=== PATIENT | male | born 1995 | race Caucasian/White ===

== ENCOUNTER 2023-06-27 15:32 | Outpatient (OUT) | payer OTHER, SELFPAY ==
[2023-06-27 16:12] LABS: Basophils Percent Auto 0.3 % (0.2-2.0); Eosinophils Absolute Auto 0.1 10^3/uL (0.0-0.7); Eosinophils Percent Auto 0.4 % (0.9-7.0); Hematocrit 48.2 % (42.0-54.0); Hemoglobin 15.6 g/dL (14.0-18.0); Immature Granulocytes Abs Auto 0.05 10^3/uL (0.00-0.03); Immature Granulocytes Pct Auto 0.4 % (0.0-0.5); Lymphocytes Absolute Auto 2.8 10^3/uL (1.2-3.8); Lymphocytes Percent Auto 20.2 % (20.5-60.0); Mean Corpuscular HGB Conc 32.4 g/dL (29.9-35.2); Mean Corpuscular Hemoglobin 26.5 pg (25.9-34.0); Mean Corpuscular Volume 81.8 fL (80.0-94.0); Mean Platelet Volume 10.5 fL (9.5-13.5); Monocytes Absolute Auto 0.8 10^3/uL (0.3-0.8); Monocytes Percent Auto 5.5 % (1.7-12.0); Neutrophils Percent Auto 73.2 % (43.0-75.0); Platelet Count 298 10^3/uL (150-450); Red Blood Count 5.89 10^6/uL (4.70-6.10); Red Cell Distribution Width 13.2 % (11.0-15.0); White Blood Count 13.6 10^3/uL (4.0-11.0)
[2023-06-27 16:25] LABS: Estimated Average Glucose 103 mg/dL; Glycohemoglobin A1C 5.2 % (4.5-6.2)
[2023-06-27 16:34] LABS: Alanine Aminotransferase 24 U/L (16-63); Albumin Globulin Ratio 1.4; Albumin Level 4.7 g/dL (3.4-5.0); Alkaline Phosphatase 72 U/L (46-116); Anion Gap 13.5; Aspartate Amino Transferase 13 U/L (15-37); BUN Creatinine Ratio 11.3; Bilirubin Total 0.9 mg/dL (0.2-1.0); Calcium 9.3 mg/dL (8.5-10.1); Carbon Dioxide 30.4 mmol/L (21.0-32.0); Chloride 101 mmol/L (98-107); Chol HDL Ratio 3.7; Cholesterol 210 mg/dL (<=200); Estimated GFR (African America >60 (>=60); Estimated GFR (Non-African Ame >60 (>=60); Free T3 3.73 pg/mL (2.18-3.98); Globulin 3.4 g/dL; Glucose 84 mg/dL (74-106); HDL Cholesterol 57 mg/dL (40-60); Potassium 3.9 mmol/L (3.5-5.1); Sodium 141 mmol/L (136-145); Thyroid Stimulating Hormone 1.263 uIU/mL (0.358-3.740); Total Protein 8.1 g/dL (6.4-8.2); Triglycerides 64 mg/dL (<=150); VLDL CHOLESTEROL 12.8 mg/dL
[2023-06-28 12:08] LABS: Insulin 9.3 uIU/mL (2.6-24.9)
== END 2023-06-27 15:33 | disposition home or self-care (01) ==
LOC: LAB 15:35
PROVIDERS: PCP Family Medicine; Visit Provider Family Medicine
DX: Z00.00 Encounter for general adult medical examination without abnormal findings (principal)
CPT/HCPCS: 36415; 80053; 80061; 83036; 83525; 84436; 84443; 84481; 85025

== ENCOUNTER 2024-04-17 11:48 | Outpatient (OUT) | payer OTHER, SELFPAY ==
--- OUTSIDE RECORDS SUMMARY | 2024-04-17 12:09 | XMS_ITS | CCD ---
Author Organization [facility] Inform ion Partnership [facility] Care Team Providers Care Spray Blender Name Role Phone Brayden Taylor Attending Provider Anette Powers Unavailable Teresa Li Unavailable DR SHAUN GU Admitting Unavailable DR SHAUN GU Attending Unavailable DR SHAUN GU Primary Care Unavailable DR SHAUN GU Consulting Unavailable Unavailable Unavailable Unavailable Medications Current Medications Medication Drug Class(es) Dates Sig (Normalized) Sig (Original) pantoprazole 40 mg delayed release oral tablet (2 sources) Proton Pump Inhibitor take 1 tablet by mouth once daily Pantoprazole Sodium 40 MG take 1 tablet by mouth once daily Oral for 30 Days Active Problems Problem Classification Problem Date Documented Da te Episodic/Chronic Open wounds of head; neck; and trunk (1 source) Laceration without foreign body of scalp, initial encounter Onset: 02-21-2022 Resolved: 02-21-2022 Episodic Other aftercare (1 source) Encounter for removal of sutures Onset: 03-01-2022 Resolved: 03-01-2022 Episodic Other injuries and conditions due to external causes (1 source) Unspecified injury of head, initial encounter Onset: 02-21-2022 Resolved: 02-21-2022 Episodic Results Test Name Value Interpretation Reference Range Facility INSULINon 06-27-2022 Insulin 20.3 uIU/mL Normal 2.6-24.9 [facility] Comment on above: Performed By: #### I NSULIN #### [facility] [address] [address] [address] Rosemary Olvera CBC AUTO DIFFon 06-26-2022 BASO # 0.0 103/ul Normal 0.0-0.1 [facility] Comment on above: Performed By: #### C BC #### [facility] [address] [address] [address] Rosemary Olvera Basophils/100 WBC (Bld) 0.4 % Normal 0.2-2.0 [facility] Comment on above: Performed By: #### C BC #### [facility] [address] [place] [address] Dr. Rosemary Olvera EO # 0.2 103/ul Normal 0.0-0.7 [facility] Comment on above: Performed By: #### C BC #### [facility] [address] [place] [address] Dr. Rosemary Olvera Eosinophils/100 WBC (Bld) 1.8 % Normal 0.9-7.0 [facility] Comment on above: Performed By: #### C BC #### [facility] [address] [place] [address] Dr. Rosemary Olvera Erythrocyte distribution width (RBC) [Ratio] 13.7 % Normal 11.0-15.0 [facility] Comment on above: Performed By: #### C BC #### [facility] [address] [place] [address] Dr. Rosemary Olvera Hematocrit (Bld) [Volume fraction] 48.0 % Normal 42.0-54.0 [facility] Comment on above: Performed By: #### C BC #### [facility] [address] [place] [address] Dr. Rosemary Olvera Hemoglobin (Bld) [Mass/Vol] 15.9 g/dL Normal 14.0-18.0 [facility] Comment on above: Performed By: #### C BC #### [facility] [address] [place] [address] Dr. Rosemary Olvera IG # 0.04 10e3/ul Critically high 0.00-0.03 [facility] Comment on above: Performed By: #### C BC #### [facility] [address] [place] [address] Dr. Rosemary Olvera IG % 0.4 % Normal 0.0-0.5 [facility] Comment on above: Performed By: #### C BC #### [facility] [address] [address] [address] Rosemary Olvera LYMPH # 2.2 103/ul Normal 1.2-3.8 [facility] Comment on above: Performed By: #### C BC #### [facility] [address] [address] [address] Rosemary Olvera Lymphocytes/100 WBC (Bld) 24.4 % Normal 20.5-60.0 [facility] Comment on above: Performed By: #### C BC #### [facility] [address] [place] [address] Dr. Rosemary Olvera MANUAL DIFF REQ NO Normal [facility] Comment on above: Performed By: #### C BC #### [facility] [address] [place] [address] Dr. Rosemary Olvera MCH (RBC) [Entitic mass] 26.5 pg Normal 25.9-34.0 [facility] Comment on above: Performed By: #### C BC #### [facility] [address] [place] [address] Dr. Rosemary Olvera MCHC (RBC) [Mass/Vol] 33.1 g/dL Normal 29.9-35.2 [facility] Comment on above: Performed By: #### C BC #### [facility] [address] [place] [address] Dr. Rosemary Olvera MCV (RBC) [Entitic vol] 79.9 fL Critically low 80.0-94.0 [facility] Comment on above: Performed By: #### C BC #### [facility] [address] [place] [address] Dr. Rosemary Olvera MONO # 0.5 103/ul Normal 0.3-0.8 [facility] Comment on above: Performed By: #### C BC #### [facility] [address] [place] [address] Dr. Rosemary Olvera Monocytes/100 WBC (Bld) 5.5 % Normal 1.7-12.0 [facility] Comment on above: Performed By: #### C BC #### [facility] [address] [place] [address] Dr. Rosemary Olvera NEUT # 6.1 103/ul Normal 1.4-6.5 [facility] Comment on above: Performed By: #### C BC #### [facility] [address] [place] [address] Dr. Rosemary Olvera Neutrophils/100 WBC (Bld) 67.5 % Normal 43.0-75.0 [facility] Comment on above: Performed By: #### C BC #### [facility] [address] [place] [address] Dr. Rosemary Olvera Platelet mean volume (Bld) [Entitic vol] 10.2 fL Normal 9.5-13.5 [facility] Comment on above: Performed By: #### C BC #### [facility] [address] [place] [address] Dr. Rosemary Olvera PLT 283 103/ul Normal 150-450 [facility] Comment on above: Performed By: #### C BC #### [facility] [address] [place] [address] Dr. Rosemary Olvera RBC 6.01 106/ul Normal 4.70-6.10 [facility] Comment on above: Performed By: #### C BC #### [facility] [address] [place] [address] Dr. Rosemary Olvera WBC 9.1 103/ul Normal 4.0-11.0 [facility] Comment on above: Performed By: #### C BC #### [facility] [address] [place] [address] Dr. Rosemary Olvera FREE THYROXINE INDEX T7on FTI 3.71 Normal 1.30-4.50 [facility] Comment on above: Performed By: #### T 7, LIPID, CMP, TSH #### [facility] [address] [place] [address] Dr. Rosemary Olvera T3U 35.0 % Normal 33.0-40.0 [facility] Comment on above: Performed By: #### T 7, LIPID, CMP, TSH #### [facility] [address] [place] [address] Dr. Rosemary Olvera T4 [Mass/Vol] 10.60 ug/dL Normal 4.50-12.10 [facility] Comment on above: Performed By: #### T 7, LIPID, CMP, TSH #### [facility] [address] [address] [address] Rosemary lOvera GLYCOHEMOGLOBIN A1Con 2021 ADA RECOMMENDATION SEE BELOW Normal [facility] Comment on above: Result Comment: ADA RECOMMENDED LIMIT 4.0 - 6.0 ADA THERAPEUTIC TARGET < 7.0 ACTION SUGGESTED > 7.0 Performed By: #### A 1C #### [facility] [address] [address] [address] Rosemary Olvera Glucose [Mass/Vol] 108 mg/dL Normal [facility] Comment on above: Performed By: #### A 1C #### [facility] [address] [place] [address] Dr. Rosemary Olvera HbA1c (Bld) [Mass fraction] 5.4 % Normal 4.5-6.2 [facility] Comment on above: Performed By: #### A 1C #### [facility] [address] [address] [address] Rosemary Olvera LIPID PROFILEon 06-26-2022 CHOL-HDL RATIO NORM SEE BELOW Normal [facility] Comment on above: Result Comment: 3.3 - 4.4 LOW RISK 4.4 - 7.1 AVERAGE RISK 7.1 - 11.0 MODERATE RISK >11.0 HIGH RISK Performed By: #### T 7, LIPID, CMP, TSH #### [facility] [address] [address] [address] Rosemary Olvera Cholesterol [Mass/Vol] 198 mg/dL Normal <=200 [facility] Comment on above: Performed By: #### T 7, LIPID, CMP, TSH #### [facility] [address] [address] [address] Rosemary Olvera Cholesterol in HDL [Mass/Vol] 47 mg/dL Normal 40-60 [facility] Comment on above: Performed By: #### T 7, LIPID, CMP, TSH #### [facility] [address] [address] [address] Rosemary Olvera Cholesterol in LDL [Mass/Vol] 135.4 mg/dL Normal [facility] Comment on above: Performed By: #### T 7, LIPID, CMP, TSH #### [facility] [address] [address] [address] Rosemary Olvrea Cholesterol.total/Cho lesterol in HDL [Mass ratio] 4.2 {ratio} Normal [facility] Comment on above: Performed By: #### T 7, LIPID, CMP, TSH #### [facility] [address] [address] [address] Rosemary Olvera HDL NORMAL > or = 60 mg/dl - LOW CARDIOVASCULAR RISK <40 mg/dl - HIGH CARDIOVASCULAR RISK Normal [facility] Comment on above: Performed By: #### T 7, LIPID, CMP, TSH #### [facility] [address] [place] [address] Dr. Rosemary Olvera LDL CALC NORMAL SEE BELOW Normal [facility] Comment on above: Result Comment: <100 mg/dl OPTIMAL 100 - 129 mg/dl NEAR OR ABOVE OPTIMAL 130 - 159 mg/dl BORDERLINE HIGH 160 - 189 mg/dl HIGH >190 mg/dl VERY HIGH Performed By: #### T 7, LIPID, CMP, TSH #### [facility] [address] [address] [address] Rosemary Olvera Triglyceride [Mass/Vol] 78 mg/dL Normal <=150 [facility] Comment on above: Performed By: #### T 7, LIPID, CMP, TSH #### [facility] [address] [address] [address] Rosemary Olvera VLDL CALC 15.6 mg/dL Normal [facility] Comment on above: Performed By: #### T 7, LIPID, CMP, TSH #### [facility] [address] [address] [address] Rosemary Olvera PROF 14(COMP METB)on 022 Albumin [Mass/Vol] 4.3 g/dL Normal 3.4-5.[address] [facility] Comment on above: Performed By: #### T 7, LIPID, CMP, TSH #### [facility] [address] [address] [address] Rosemary Olvera Albumin/Globulin [Mass ratio] 1.2 {ratio} Normal [facility] Comment on above: Performed By: #### T 7, LIPID, CMP, TSH #### [facility] [address] [address] [address] Rosemary Olvera ALP [Catalytic activity/Vol] 62 U/L Normal 46-116 [facility] Comment on above: Performed By: #### T 7, LIPID, CMP, TSH #### [facility] [address] [address] [address] Rosemary Olvera ALT [Catalytic activity/Vol] 22 U/L Normal 16-63 [facility] Comment on above: Performed By: #### T 7, LIPID, CMP, TSH #### [facility] [address] [address] [address] Rosemary Olvera Anion gap [Moles/Vol] 10.3 mmol/L Normal [facility] Comment on above: Performed By: #### T 7, LIPID, CMP, TSH #### [facility] [address] [address] [address] Rosemary Olvera AST [Catalytic activity/Vol] 9 U/L Critically low 15-37 [facility] Comment on above: Performed By: #### T 7, LIPID, CMP, TSH #### [facility] [address] [address] [address] Rosemary Olvera Bilirubin [Mass/Vol] 0.6 mg/dL Normal 0.2-1.0 [facility] Comment on above: Performed By: #### T 7, LIPID, CMP, TSH #### [facility] [address] [address] [address] Rosemary Olvera Calcium [Mass/Vol] 9.3 mg/dL Normal 8.5-10.[address] [facility] Comment on above: Performed By: #### T 7, LIPID, CMP, TSH #### [facility] [address] [address] [address] Rosemary Olvera Chloride [Moles/Vol] 103 mmol/L Normal 98-107 [facility] Comment on above: Performed By: #### T 7, LIPID, CMP, TSH #### [facility] [address] [address] [address] Rosemary Olvera CO2 [Moles/Vol] 29.5 mmol/L Normal 21.0-32.0 [facility] Comment on above: Performed By: #### T 7, LIPID, CMP, TSH #### [facility] [address] [place] [address] Dr. Rosemary Olvera Creatinine [Mass/Vol] 0.90 mg/dL Normal 0.70-1.30 [facility] Comment on above: Performed By: #### T 7, LIPID, CMP, TSH #### [facility] [address] [place] [address] Dr. Rosemary Olvera EGFR-AF LIBYAN >60 Normal >=60 [facility] Comment on above: Performed By: #### T 7, LIPID, CMP, TSH #### [facility] [address] [place] [address] Dr. Rosemary Olvera EGFR-NON AF LIBYAN >60 Normal >=60 [facility] Comment on above: Performed By: #### T 7, LIPID, CMP, TSH #### [facility] [address] [place] [address] Dr. Rosemary Olvera Globulin (S) [Mass/Vol] 3.6 g/dL Normal [facility] Comment on above: Performed By: #### T 7, LIPID, CMP, TSH #### [facility] [address] [place] [address] Dr. Rosemary Olvera Glucose [Mass/Vol] 100 mg/dL Normal 74-[address] [facility] Comment on above: Performed By: #### T 7, LIPID, CMP, TSH #### [facility] [address] [place] [address] Dr. Rosemary Olvera Potassium [Moles/Vol] 3.8 mmol/L Normal 3.5-5.1 [facility] Comment on above: Performed By: #### T 7, LIPID, CMP, TSH #### [facility] [address] [place] [address] Dr. Rosemary Olvera Protein [Mass/Vol] 7.9 g/dL Normal 6.4-8.2 [facility] Comment on above: Performed By: #### T 7, LIPID, CMP, TSH #### [facility] [address] [place] [address] Dr. Rosemary Olvera Sodium [Moles/Vol] 139 mmol/L Normal 136-145 [facility] Comment on above: Performed By: #### T 7, LIPID, CMP, TSH #### [facility] [address] [place] [address] Dr. Rosemary Olvera Urea nitrogen [Mass/Vol] 13.0 mg/dL Normal 7.0-18.0 [facility] Comment on above: Performed By: #### T 7, LIPID, CMP, TSH #### [facility] [address] [place] [address] Dr. Rosemary Olvera Urea nitrogen/Creatinine [Mass ratio] 14.4 mg/mg Normal [facility] Comment on above: Performed By: #### T 7, LIPID, CMP, TSH #### [facility] [address] [place] [address] Dr. Rosemary Olvera TSHon 06-26-2022 TSH 1.405 uIU/mL Normal 0.358-3.740 [facility] Comment on above: Performed By: #### T 7, LIPID, CMP, TSH #### [facility] [address] [place] [address] Dr. Rosemary Olvera VITAMIN D 25 OHon 06-26-2022 VIT D 25-OH 8.5 ng/mL Normal [facility] Comment on above: Performed By: #### V ITAD #### [facility] [address] [place] [address] Dr. Rosemary Olvera VIT D RANGES SEE BELOW Normal [facility] Comment on above: Result Comment: <20 ng/mL Vit D deficient 20 - <30 ng/mL Vit D insufficient 30 - 100 ng/mL Vit D sufficient >100 ng/mL Potential Toxicity Performed By: #### V ITAD #### [facility] [address] [place] [address] Dr. Rosemary Olvera COVID-19 Lab [facility] 02-02-20 20 COVID-19 Lab Mandy Not Detected Normal Not Detected [facility] Comment on above: Order Comment: RAMON COOK WITH RESULTS [phone] Healthcare Worker?: Y Result Comment: This test was developed and its performance characteristics determined by [employer]. This test has not been FDA cleared or approved. This test has been authorized by FDA under an Emergency Use Authorization (EUA). This test is only authorized for the duration of time the declaration that circumstances exist justifying the authorization of the emergency use of in vitro diagnostic tests for detection of SARS-CoV-2 virus and/or diagnosis of COVID-19 infection under section 564(b)(1) of the Act, 21 U.S.C. 360bbb-3(b)(1), unless the authorization is terminated or revoked sooner. When diagnostic testing is negative, the possibility of a false negative result should be considered in the context of a patient's recent exposures and the presence of clinical signs and symptoms consistent with COVID-19. An individual without symptoms of COVID-19 and who is not shedding SARS-CoV-2 virus would expect to have a negative (not detected) result in this assay. PERFORMED BY: [address] [address] PATHOLOGIST [employer]AR[employer] JAMES KRAUSE M.D. Performed By: #### C ORONAVIRUS #### [facility] , Vital Signs Date Time Vital Sign Value Performing Clinician Facility 02-21-2022 19:15-0400 Body height 187.96 cm Anette Powers Other [facility] Other 02-21-2022 19:15-0400 Body mass index (BMI) [Ratio] 31.58 kg/m2 Anette Powers Other [facility] Other 02-21-2022 19:15-0400 Body temperature 97.4 [degF] Anette Powers Other [facility] Other 02-21-2022 19:15-0400 Body weight 111.59 kg Anette Priya Other [facility] Other 02-21-2022 19:15-0400 Diastolic blood pressure 76 mm[Hg] Anette Priya Other [facility] Other 02-21-2022 19:15-0400 Respiratory rate 18 /min Anette Priya Other [facility] Other 02-21-2022 19:15-0400 SaO2% (BldA) [Mass fraction] 99 % Anette Priya Other [facility] Other 02-21-2022 19:15-0400 Systolic blood pressure 126 mm[Hg] Anette Priya Other [facility] Other Encounters Encounter Date Encounter Type Care Provider Facility Start: 06-29-2022 Encounter for genera l adult medical examination without abnormal findings DR SHAUN GU [facility] Start: 06-26-2022 End: 06-27-[address] SHAUN GU Facility:[facility] Start: 06-26-2022 End: 06-27-2022 Encounter for general adult medical examination without abnormal findings DR SHAUN GU Facility:[facility] Start: 03-01-2022 End: 03-01-2022 ambulatory Teresa Li Other [facility] Other Start: 03-01-2022 Office outpatient vi sit 5 minutes Teresa Li [facility] Start: 02-21-2022 End: 02-21-2022 ambulatory Anette Powers Other [facility] Other Start: 02-21-2022 Office outpatient ne w 20 minutes Anette Powers [facility] Start: 02-02-2020 End: 02-02-2020 Departed Referred Brayden Taylor [facility] [place] Payers Date Payer Category Payer Unknown [id number] 1957 Unknown [id number] Self-pay Self Pay [id number] Social History Date Type Detail Facility Tobacco smoking status NHIS Unknown if ever smoked [facility] Start: 1995 Sex Assigned At Male F [facility] Sex Assigned At Sex Assigned At Bir th [facility] Other Goals Date Patient Goal Desired Activity /State Evaluation note 03-01-2022 Note Date & Type Note Facility 03-01-2022 Evaluation note Encounter Date Diagnosis Assessment Notes Feb, Removal of staple (ICD-10 - Z48.02) [facility] Other Evaluation note 02-21-2022 Note Date & Type Note Facility 02-21-2022 Evaluation note Encounter Date Diagnosis Assessment Notes Feb, Laceration of scalp, initial encounter (ICD-10 - S01.01XA) Drink plenty fluids, get plenty of rest. Keep the wound clean and dry. Apply antibiotic ointment to the wound daily. You may apply ice to the the wound area for comfort. Take Tylenol or Motrin as needed for pain. It is okay for you to sleep. Go to your doctor's office or return to this clinic in 7 days for staple removal. You may shower, be gentle over the staple area. No swimming until the wound is completely healed. Feb, Injury of head, initial encounter (ICD-10 - S09.90XA) Closed head injury home care material was printed Feb, Other Laceration repair: [facility] home care material was printed [facility] Other History general Narrative - Reported Note Date & Type Note Facility History general Narrative - Reported Type Medical History hyperacidity [facility] Other Assessments No Assessments Information Available Summary Purpose Family History No Family History Records FoundNo Family History Records Found Advance Directives No Advanced Directives Records FoundNo Advanced Directives Records Found Additional Source Comments (unrecognized sect ion and content) No Status Records FoundNo Status Records Found INFORMATION SOURCE (unrecogn ized section and content) DATE CREATED AUTHOR 03/04/2020 [facility] DATE CREATED AUTHOR AUTHOR'S ORGANIZ ATION 06/30/2022 [facility] REASON FOR VISIT (unrecogniz ed section and content) HEAD LACERATIONWOUND CHECK S TAPLE REMOVAL FOR RECORDS PERTAINING TO PATIENTS WHO ARE OR HAVE BEEN ENROLLED IN A CHEMICAL DEPENDENCY/SUBSTANCEABUSE PROGRAM, SOME INFORMATION MAY BE OMITTED. This clinical summary was aggregated from multiple sources. Caution should be exercised in using it in the provision of clinical care. This summary normalizes information from multiple sources, and as a consequence, information in this document may materially change the coding, format and clinical context of patient data. In addition, data may be omitted in some cases. CLINICAL DECISIONS SHOULD BE BASED ON THE PRIMARY CLINICAL RECORDS. [employer] provides no warranty or guarantee of the accuracy or completeness of information in this document.
[2024-04-17 12:46] LABS: Estimated Average Glucose 100 mg/dL; Glycohemoglobin A1C 5.1 % (4.5-6.2)
[2024-04-17 13:09] LABS: Alanine Aminotransferase 28 U/L (16-63); Albumin Globulin Ratio 1.4; Albumin Level 4.2 g/dL (3.4-5.0); Alkaline Phosphatase 68 U/L (46-116); Anion Gap 10.8; Aspartate Amino Transferase 12 U/L (15-37); BUN Creatinine Ratio 7.2; Bilirubin Total 0.9 mg/dL (0.2-1.0); Calcium 9.3 mg/dL (8.5-10.1); Carbon Dioxide 31.2 mmol/L (21.0-32.0); Chloride 104 mmol/L (98-107); Cholesterol 211 mg/dL (<=200); Estimated GFR (African America >60 (>=60); Estimated GFR (Non-African Ame >60 (>=60); Globulin 3.1 g/dL; Glucose 89 mg/dL (74-106); HDL Cholesterol 53 mg/dL (40-60); Sodium 142 mmol/L (136-145); Total Protein 7.3 g/dL (6.4-8.2); Triglycerides 106 mg/dL (<=150); VLDL CHOLESTEROL 21.2 mg/dL
[2024-04-17 16:39] LABS: Basophils Percent Auto 0.3 % (0.2-2.0); Eosinophils Absolute Auto 0.1 10^3/uL (0.0-0.7); Eosinophils Percent Auto 1.1 % (0.9-7.0); Hematocrit 48.2 % (42.0-54.0); Hemoglobin 15.7 g/dL (14.0-18.0); Immature Granulocytes Abs Auto 0.04 10^3/uL (0.00-0.03); Immature Granulocytes Pct Auto 0.5 % (0.0-0.5); Lymphocytes Absolute Auto 2.5 10^3/uL (1.2-3.8); Lymphocytes Percent Auto 27.7 % (20.5-60.0); Mean Corpuscular HGB Conc 32.6 g/dL (29.9-35.2); Mean Corpuscular Hemoglobin 26.7 pg (25.9-34.0); Mean Platelet Volume 11.1 fL (9.5-13.5); Monocytes Absolute Auto 0.6 10^3/uL (0.3-0.8); Monocytes Percent Auto 6.3 % (1.7-12.0); Neutrophils Absolute Auto 5.7 10^3/uL (1.4-6.5); Neutrophils Percent Auto 64.1 % (43.0-75.0); Platelet Count 307 10^3/uL (150-450); Red Blood Count 5.88 10^6/uL (4.70-6.10); Red Cell Distribution Width 13.4 % (11.0-15.0); White Blood Count 8.9 10^3/uL (4.0-11.0)
[2024-04-18 12:09] LABS: Insulin 9.3 uIU/mL (2.6-24.9)
== END 2024-04-17 11:49 | disposition home or self-care (01) ==
LOC: LAB 11:49
PROVIDERS: PCP Family Medicine; Visit Provider Family Medicine
DX: Z00.00 Encounter for general adult medical examination without abnormal findings (principal)
CPT/HCPCS: 36415; 80053; 80061; 83036; 83525; 85025

== ENCOUNTER 2024-05-13 14:56 | Outpatient (OUT) | payer OTHER, SELFPAY ==
--- OUTSIDE RECORDS SUMMARY | 2024-05-13 15:09 | XMS_ITS | CCD ---
Author Organization [facility] Inform ion Partnership [facility] Care Team Providers Care Press Operator Automatic Name Role Phone Brayden Taylor Attending Provider [...] INSULINon 06-27-2022 Insulin 20.3 uIU/mL Normal 2.6-24.9 [facility] Comment on above: Performed By: #### I NSULIN #### [facility] [address] [address] [address] Rosemary Olvera CBC AUTO DIFFon 06-26-2022 BASO # 0.0 103/ul Normal 0.0-0.1 [facility] Comment on above: Performed By: #### C BC #### [facility] [address] [address] [address] Rosemary Olvera Basophils/100 WBC (Bld) 0.4 % Normal 0.2-2.0 [facility] Comment on above: Performed By: #### C BC #### [facility] [address] [place] [address] Dr. Rosemary Olvera EO # 0.2 103/ul Normal 0.0-0.7 [facility] Comment on above: Performed By: #### C BC #### [facility] [address] [place] [address] Dr. Rosemary Olvera Eosinophils/100 WBC (Bld) 1.8 % Normal 0.9-7.0 [facility] Comment on above: Performed By: #### C BC #### [facility] [address] [place] [address] Dr. Rosemary Olvera Erythrocyte distribution width (RBC) [Ratio] 13.7 % Normal 11.0-15.0 [facility] Comment on above: Performed By: #### C BC #### [facility] [address] [place] [address] Dr. Rosemary Olvera Hematocrit (Bld) [Volume fraction] 48.0 % Normal 42.0-54.0 [facility] Comment on above: Performed By: #### C BC #### [facility] [address] [place] [address] Dr. Rosemary Olvera Hemoglobin (Bld) [Mass/Vol] 15.9 g/dL Normal 14.0-18.0 [facility] Comment on above: Performed By: #### C BC #### [facility] [address] [place] [address] Dr. Rosemary Olvera IG # 0.04 10e3/ul Critically high 0.00-0.03 [facility] Comment on above: Performed By: #### C BC #### [facility] [address] [place] [address] Dr. Rosemary Olvera IG % 0.4 % Normal 0.0-0.5 [facility] Comment on above: Performed By: #### C BC #### [facility] [address] [address] [address] Rosemary Olvera LYMPH # 2.2 103/ul Normal 1.2-3.8 [facility] Comment on above: Performed By: #### C BC #### [facility] [address] [address] [address] Rosemary Olvera Lymphocytes/100 WBC (Bld) 24.4 % Normal 20.5-60.0 [facility] Comment on above: Performed By: #### C BC #### [facility] [address] [place] [address] Dr. Rosemary Olvera MANUAL DIFF REQ NO Normal [facility] Comment on above: Performed By: #### C BC #### [facility] [address] [place] [address] Dr. Rosemary Olvera MCH (RBC) [Entitic mass] 26.5 pg Normal 25.9-34.0 [facility] Comment on above: Performed By: #### C BC #### [facility] [address] [place] [address] Dr. Rosemary Olvera MCHC (RBC) [Mass/Vol] 33.1 g/dL Normal 29.9-35.2 [facility] Comment on above: Performed By: #### C BC #### [facility] [address] [place] [address] Dr. Rosemary Olvera MCV (RBC) [Entitic vol] 79.9 fL Critically low 80.0-94.0 [facility] Comment on above: Performed By: #### C BC #### [facility] [address] [place] [address] Dr. Rosemary Olvera MONO # 0.5 103/ul Normal 0.3-0.8 [facility] Comment on above: Performed By: #### C BC #### [facility] [address] [place] [address] Dr. Rosemary Olvera Monocytes/100 WBC (Bld) 5.5 % Normal 1.7-12.0 [facility] Comment on above: Performed By: #### C BC #### [facility] [address] [place] [address] Dr. Rosemary Olvera NEUT # 6.1 103/ul Normal 1.4-6.5 [facility] Comment on above: Performed By: #### C BC #### [facility] [address] [place] [address] Dr. Rosemary Olvera Neutrophils/100 WBC (Bld) 67.5 % Normal 43.0-75.0 [facility] Comment on above: Performed By: #### C BC #### [facility] [address] [place] [address] Dr. Rosemary Olvera Platelet mean volume (Bld) [Entitic vol] 10.2 fL Normal 9.5-13.5 [facility] Comment on above: Performed By: #### C BC #### [facility] [address] [place] [address] Dr. Rosemary Olvera PLT 283 103/ul Normal 150-450 [facility] Comment on above: Performed By: #### C BC #### [facility] [address] [place] [address] Dr. Rosemary Olvera RBC 6.01 106/ul Normal 4.70-6.10 [facility] Comment on above: Performed By: #### C BC #### [facility] [address] [place] [address] Dr. Rosemary Olvera WBC 9.1 103/ul Normal 4.0-11.0 [facility] Comment on above: Performed By: #### C BC #### [facility] [address] [place] [address] Dr. Rosemary Olvera FREE THYROXINE INDEX T7on FTI 3.71 Normal 1.30-4.50 [facility] Comment on above: Performed By: #### T 7, LIPID, CMP, TSH #### [facility] [address] [place] [address] Dr. Rosemary Olvera T3U 35.0 % Normal 33.0-40.0 [facility] Comment on above: Performed By: #### T 7, LIPID, CMP, TSH #### [facility] [address] [place] [address] Dr. Rosemary Olvera T4 [Mass/Vol] 10.60 ug/dL Normal 4.50-12.10 [facility] Comment on above: Performed By: #### T 7, LIPID, CMP, TSH #### [facility] [address] [address] [address] Rosemary Olvera GLYCOHEMOGLOBIN A1Con 2021 ADA RECOMMENDATION SEE BELOW Normal [facility] Comment on above: Result Comment: ADA RECOMMENDED LIMIT 4.0 - 6.0 ADA THERAPEUTIC TARGET < 7.0 ACTION SUGGESTED > 7.0 Performed By: #### A 1C #### [facility] [address] [address] [address] Rosemary Olvera Glucose [Mass/Vol] 108 mg/dL Normal [facility] Comment on above: Performed By: #### A 1C #### [facility] [address] [place] [address] Dr. Rosemary Olvera HbA1c (Bld) [Mass fraction] 5.4 % Normal 4.5-6.2 [facility] Comment on above: Performed By: #### A 1C #### [facility] [address] [address] [address] Rosemary Olvera LIPID PROFILEon 06-26-2022 CHOL-HDL RATIO NORM SEE BELOW Normal [facility] Comment on above: Result Comment: 3.3 - 4.4 LOW RISK 4.4 - 7.1 AVERAGE RISK 7.1 - 11.0 MODERATE RISK >11.0 HIGH RISK Performed By: #### T 7, LIPID, CMP, TSH #### [facility] [address] [address] [address] Rosemary Olvera Cholesterol [Mass/Vol] 198 mg/dL Normal <=200 [facility] Comment on above: Performed By: #### T 7, LIPID, CMP, TSH #### [facility] [address] [address] [address] Rosemary Olvera Cholesterol in HDL [Mass/Vol] 47 mg/dL Normal 40-60 [facility] Comment on above: Performed By: #### T 7, LIPID, CMP, TSH #### [facility] [address] [address] [address] Rosemary Olvera Cholesterol in LDL [Mass/Vol] 135.4 mg/dL Normal [facility] Comment on above: Performed By: #### T 7, LIPID, CMP, TSH #### [facility] [address] [address] [address] Rosemary Olvera Cholesterol.total/Cho lesterol in HDL [Mass ratio] 4.2 {ratio} Normal [facility] Comment on above: Performed By: #### T 7, LIPID, CMP, TSH #### [facility] [address] [address] [address] Rosemary Olvera HDL NORMAL > or = 60 mg/dl - LOW CARDIOVASCULAR RISK <40 mg/dl - HIGH CARDIOVASCULAR RISK Normal [facility] Comment on above: Performed By: #### T 7, LIPID, CMP, TSH #### [facility] [address] [place] [address] Dr. Rosemary Olvera LDL CALC NORMAL SEE BELOW Normal [facility] Comment on above: Result Comment: <100 mg/dl OPTIMAL 100 - 129 mg/dl NEAR OR ABOVE OPTIMAL 130 - 159 mg/dl BORDERLINE HIGH 160 - 189 mg/dl HIGH >190 mg/dl VERY HIGH Performed By: #### T 7, LIPID, CMP, TSH #### [facility] [address] [address] [address] Rosemary Olvera Triglyceride [Mass/Vol] 78 mg/dL Normal <=150 [facility] Comment on above: Performed By: #### T 7, LIPID, CMP, TSH #### [facility] [address] [address] [address] Rosemary Olvera VLDL CALC 15.6 mg/dL Normal [facility] Comment on above: Performed By: #### T 7, LIPID, CMP, TSH #### [facility] [address] [address] [address] Rosemary Olvera PROF 14(COMP METB)on 022 Albumin [Mass/Vol] 4.3 g/dL Normal 3.4-5.0 [facility] Comment on above: Performed By: #### T 7, LIPID, CMP, TSH #### [facility] [address] [address] [address] Rosemary Olvera Albumin/Globulin [Mass ratio] 1.2 {ratio} Normal [facility] Comment on above: Performed By: #### T 7, LIPID, CMP, TSH #### [facility] [address] [address] [address] Rosemary Olvera ALP [Catalytic activity/Vol] 62 U/L Normal 46-116 [facility] Comment on above: Performed By: #### T 7, LIPID, CMP, TSH #### [facility] [address] [address] [address] Rosemary Olvera ALT [Catalytic activity/Vol] 22 U/L Normal 16-63 [facility] Comment on above: Performed By: #### T 7, LIPID, CMP, TSH #### [facility] [address] [address] [address] Rosemary Olvera Anion gap [Moles/Vol] 10.3 mmol/L Normal [facility] Comment on above: Performed By: #### T 7, LIPID, CMP, TSH #### [facility] [address] [address] [address] Rosemary Olvera AST [Catalytic activity/Vol] 9 U/L Critically low 15-37 [facility] Comment on above: Performed By: #### T 7, LIPID, CMP, TSH #### [facility] [address] [address] [address] Rosemary Olvera Bilirubin [Mass/Vol] 0.6 mg/dL Normal 0.2-1.0 [facility] Comment on above: Performed By: #### T 7, LIPID, CMP, TSH #### [facility] [address] [address] [address] Rosemary Olvera Calcium [Mass/Vol] 9.3 mg/dL Normal 8.5-10.1 [facility] Comment on above: Performed By: #### T 7, LIPID, CMP, TSH #### [facility] [address] [address] [address] Rosemary Olvera Chloride [Moles/Vol] 103 mmol/L Normal 98-107 [facility] Comment on above: Performed By: #### T 7, LIPID, CMP, TSH #### [facility] [address] [address] [address] Rosemary Olvera CO2 [Moles/Vol] 29.5 mmol/L Normal 21.0-32.0 [facility] Comment on above: Performed By: #### T 7, LIPID, CMP, TSH #### [facility] [address] [place] [address] Dr. Rosemary Olvera Creatinine [Mass/Vol] 0.90 mg/dL Normal 0.70-1.30 [facility] Comment on above: Performed By: #### T 7, LIPID, CMP, TSH #### [facility] [address] [place] [address] Dr. Rosemary Olvera EGFR-AF YEMENI >60 Normal >=60 [facility] Comment on above: Performed By: #### T 7, LIPID, CMP, TSH #### [facility] [address] [place] [address] Dr. Rosemary Olvera EGFR-NON AF YEMENI >60 Normal >=60 [facility] Comment on above: Performed By: #### T 7, LIPID, CMP, TSH #### [facility] [address] [place] [address] Dr. Rosemary Olvera Globulin (S) [Mass/Vol] 3.6 g/dL Normal [facility] Comment on above: Performed By: #### T 7, LIPID, CMP, TSH #### [facility] [address] [place] [address] Dr. Rosemary Olvera Glucose [Mass/Vol] 100 mg/dL Normal 74-106 [facility] Comment on above: Performed By: #### T 7, LIPID, CMP, TSH #### [facility] [address] [place] [address] Dr. Rosemary Olvera Potassium [Moles/Vol] 3.8 mmol/L Normal 3.5-5.1 [facility] Comment on above: Performed By: #### T 7, LIPID, CMP, TSH #### [facility] [address] [place] [address] Dr. Rosemary Olvera Protein [Mass/Vol] 7.9 g/dL Normal 6.4-8.2 [facility] Comment on above: Performed By: #### T 7, LIPID, CMP, TSH #### [facility] [address] [place] [address] Dr. Rosemary Olvera Sodium [Moles/Vol] 139 mmol/L Normal 136-145 [facility] Comment on above: Performed By: #### T 7, LIPID, CMP, TSH #### [facility] [address] [place] [address] Dr. Rosemary Olvera Urea nitrogen [Mass/Vol] 13.0 mg/dL Normal 7.0-18.0 [facility] Comment on above: Performed By: #### T 7, LIPID, CMP, TSH #### [facility] [address] [place] [address] Dr. Rosemary Olvera Urea nitrogen/Creatinine [Mass ratio] 14.4 mg/mg Normal [facility] Comment on above: Performed By: #### T 7, LIPID, CMP, TSH #### [facility] [address] [place] [address] Dr. Rosemary Olvrea TSHon 06-26-2022 TSH 1.405 uIU/mL Normal 0.358-3.740 [facility] Comment on above: Performed By: #### T 7, LIPID, CMP, TSH #### [facility] [address] [place] [address] Dr. Rosemary Olvera VITAMIN D 25 OHon 06-26-2022 VIT D 25-OH 8.5 ng/mL Normal [facility] Comment on above: Performed By: #### V ITAD #### [facility] [address] [place] [address] Dr. Rosemary Olvera VIT D RANGES SEE BELOW Normal [facility] Comment on above: Result Comment: <20 ng/mL Vit D deficient 20 - <30 ng/mL Vit D insufficient 30 - 100 ng/mL Vit D sufficient >100 ng/mL Potential Toxicity Performed By: #### V ITAD #### [facility] [address] [place] [address] Dr. Rosemary Olvera COVID-19 [facility] 02-02-20 20 COVID-19 Lab [facility] Not Detected Normal Not Detected [facility] Comment on above: Order Comment: RAMON COOK WITH RESULTS [phone] Healthcare Worker?: Y Result Comment: This test was developed and its performance characteristics determined by [employer]. This test has not been FDA cleared [...] detected) result in this assay. PERFORMED BY: [address] [id number] PATHOLOGIST ACCESS CONTROL SPECIALIST JAMES KRAUSE M.D. Performed By: #### C ORONAVIRUS #### [facility] , Vital Signs Date Time Vital Sign Value Performing Clinician Facility 02-21-2022 19:15-0400 Body height 187.96 cm Anette Powers Other [facility] 02-21-2022 19:15-0400 Body mass index (BMI) [Ratio] 31.58 kg/m2 Anette Powers Other [facility] 02-21-2022 19:15-0400 Body temperature 97.4 [degF] Anette Powers Other [facility] 02-21-2022 19:15-0400 Body weight 111.59 kg Anette Priya Other [facility] 02-21-2022 19:15-0400 Diastolic blood pressure 76 mm[Hg] Anette Priya Other [facility] 02-21-2022 19:15-0400 Respiratory rate 18 /min Anette Priya Other [facility] 02-21-2022 19:15-0400 SaO2% (BldA) [Mass fraction] 99 % Anette Priya Other [facility] 02-21-2022 19:15-0400 Systolic blood pressure 126 mm[Hg] Anette Priya Other [facility] Other Encounters Encounter Date Encounter Type Care Provider Facility Start: 06-29-2022 Encounter for genera l adult medical examination without abnormal findings DR SHAUN GU [facility] Start: 06-26-2022 End: 06-27-[address] SHAUN GU Facility:[facility] Start: 06-26-2022 End: 06-27-2022 Encounter for general adult medical examination without abnormal findings DR SHAUN GU Facility:[facility] Start: 03-01-2022 End: 03-01-2022 ambulatory Teresa Li Other [facility] Start: 03-01-2022 Office outpatient vi sit 5 minutes Teresa Li [facility] Start: 02-21-2022 End: 02-21-2022 ambulatory Anette Powers Other [facility] Start: 02-21-2022 Office outpatient ne w 20 minutes Anette Powers [facility] Start: 02-02-2020 End: 02-02-2020 Departed Referred Brayden Taylor [facility] [place] Payers Date Payer Category Payer Unknown [id number] 1957 Unknown [id number] Self-pay Self Pay [id number] Social History Date Type Detail Facility Tobacco smoking status NHIS Unknown if ever smoked [facility] Start: 1997 Sex Assigned At Male [facility] Sex Assigned At Sex Assigned At Bir th [facility] Goals Date Patient Goal Desired Activity /State Evaluation note 03-01-2022 Note Date & Type Note Facility 03-01-2022 Evaluation note Encounter Date Diagnosis Assessment Notes Feb, Removal of staple (ICD-10 - Z48.02) [facility] Evaluation note 02-21-2022 Note Date & [...] repair: [facility] material was printed [facility] Other History general Narrative - Reported Note Date & Type Note Facility History general Narrative - Reported Type Medical History hyperacidity [facility] Assessments No Assessments Information Available Summary Purpose Family History No Family History Records FoundNo Family History Records Found Advance Directives No Advanced Directives Records FoundNo Advanced Directives Records Found Additional Source Comments (unrecognized sect ion and content) No Status Records FoundNo Status Records Found INFORMATION SOURCE (unrecogn ized section and content) DATE CREATED AUTHOR 03/04/2020 [facility] DATE CREATED AUTHOR AUTHOR'S ORGANIZ ATION [...] BE BASED ON THE PRIMARY CLINICAL RECORDS. [employer] provides no warranty or guarantee of the accuracy or completeness of information in this document.
== END 2024-05-13 14:57 | disposition home or self-care (01) ==
LOC: SLEEP 14:56
PROVIDERS: PCP Family Medicine; Visit Provider Family Medicine
DX: G47.33 Obstructive sleep apnea (adult) (pediatric) (principal)
CPT/HCPCS: 95806

== ENCOUNTER 2024-07-23 12:14 | Emergency (ER) | payer OTHER, SELFPAY ==
[2024-07-23 12:21] VITALS: BP 149/83; PULSE 92; TEMP 36.8; O2SAT 96; BMI 30.8
--- OUTSIDE RECORDS SUMMARY | 2024-07-23 12:29 | XMS_ITS | CCD ---
Author Organization [facility] Inform ion Partnership [facility] Care Team Providers Care Checker Cashier Name Role Phone Brayden Taylor Attending Provider [...] INSULINon 06-27-2022 Insulin 20.3 uIU/mL Normal 2.6-24.9 [facility] Comment on above: Performed By: #### I NSULIN #### [facility] [address] [address] [address] Rosemary Olvera CBC AUTO DIFFon 06-26-2022 BASO # 0.0 103/ul Normal 0.0-0.1 [facility] Comment on above: Performed By: #### C BC #### [facility] [address] [address] [address] Rosemary Olvera Basophils/100 WBC (Bld) 0.4 % Normal 0.2-2.0 [facility] Comment on above: Performed By: #### C BC #### [facility] [address] [place] [address] Dr. Rosemary Olvera EO # 0.2 103/ul Normal 0.0-0.7 [facility] Comment on above: Performed By: #### C BC #### [facility] [address] [place] [address] Dr. Rosemary Olvera Eosinophils/100 WBC (Bld) 1.8 % Normal 0.9-7.0 [facility] Comment on above: Performed By: #### C BC #### [facility] [address] [place] [address] Dr. Rosemary Olvera Erythrocyte distribution width (RBC) [Ratio] 13.7 % Normal 11.0-15.0 [facility] Comment on above: Performed By: #### C BC #### [facility] [address] [place] [address] Dr. Rosemary Olvera Hematocrit (Bld) [Volume fraction] 48.0 % Normal 42.0-54.0 [facility] Comment on above: Performed By: #### C BC #### [facility] [address] [place] [address] Dr. Rosemary Olvera Hemoglobin (Bld) [Mass/Vol] 15.9 g/dL Normal 14.0-18.0 [facility] Comment on above: Performed By: #### C BC #### [facility] [address] [place] [address] Dr. Rosemary Olvera IG # 0.04 10e3/ul Critically high 0.00-0.03 [facility] Comment on above: Performed By: #### C BC #### [facility] [address] [place] [address] Dr. Rosemary Olvera IG % 0.4 % Normal 0.0-0.5 [facility] Comment on above: Performed By: #### C BC #### [facility] [address] [address] [address] Rosemary Olvera LYMPH # 2.2 103/ul Normal 1.2-3.8 [facility] Comment on above: Performed By: #### C BC #### [facility] [address] [address] [address] Rosemary Olvera Lymphocytes/100 WBC (Bld) 24.4 % Normal 20.5-60.0 [facility] Comment on above: Performed By: #### C BC #### [facility] [address] [place] [address] Dr. Rosemary Olvera MANUAL DIFF REQ NO Normal [facility] Comment on above: Performed By: #### C BC #### [facility] [address] [place] [address] Dr. Rosemary Olvera MCH (RBC) [Entitic mass] 26.5 pg Normal 25.9-34.0 [facility] Comment on above: Performed By: #### C BC #### [facility] [address] [place] [address] Dr. Rosemary Olvera MCHC (RBC) [Mass/Vol] 33.1 g/dL Normal 29.9-35.2 [facility] Comment on above: Performed By: #### C BC #### [facility] [address] [place] [address] Dr. Rosemary Olvera MCV (RBC) [Entitic vol] 79.9 fL Critically low 80.0-94.0 [facility] Comment on above: Performed By: #### C BC #### [facility] [address] [place] [address] Dr. Rosemary Olvera MONO # 0.5 103/ul Normal 0.3-0.8 [facility] Comment on above: Performed By: #### C BC #### [facility] [address] [place] [address] Dr. Rosemary Olvera Monocytes/100 WBC (Bld) 5.5 % Normal 1.7-12.0 [facility] Comment on above: Performed By: #### C BC #### [facility] [address] [place] [address] Dr. Rosemary Olvera NEUT # 6.1 103/ul Normal 1.4-6.5 [facility] Comment on above: Performed By: #### C BC #### [facility] [address] [place] [address] Dr. Rosemary Olvera Neutrophils/100 WBC (Bld) 67.5 % Normal 43.0-75.0 [facility] Comment on above: Performed By: #### C BC #### [facility] [address] [place] [address] Dr. Rosemary Olvera Platelet mean volume (Bld) [Entitic vol] 10.2 fL Normal 9.5-13.5 [facility] Comment on above: Performed By: #### C BC #### [facility] [address] [place] [address] Dr. Rosemary Olvera PLT 283 103/ul Normal 150-450 [facility] Comment on above: Performed By: #### C BC #### [facility] [address] [place] [address] Dr. Rosemary Olvera RBC 6.01 106/ul Normal 4.70-6.10 [facility] Comment on above: Performed By: #### C BC #### [facility] [address] [place] [address] Dr. Rosemary Olvera WBC 9.1 103/ul Normal 4.0-11.0 [facility] Comment on above: Performed By: #### C BC #### [facility] [address] [place] [address] Dr. Rosemary Olvera FREE THYROXINE INDEX T7on FTI 3.71 Normal 1.30-4.50 [facility] Comment on above: Performed By: #### T 7, LIPID, CMP, TSH #### [facility] [address] [place] [address] Dr. Roseamry Olvera T3U 35.0 % Normal 33.0-40.0 [facility] Comment on above: Performed By: #### T 7, LIPID, CMP, TSH #### [facility] [address] [place] [address] Dr. Rosemary Olvera T4 [Mass/Vol] 10.60 ug/dL Normal 4.50-12.10 [facility] Comment on above: Performed By: #### T 7, LIPID, CMP, TSH #### [facility] [address] [address] [address] Rosemary Olvera GLYCOHEMOGLOBIN A1Con 2021 ADA RECOMMENDATION SEE BELOW Normal [facility] Comment on above: Result Comment: ADA RECOMMENDED LIMIT 4.0 - 6.0 ADA THERAPEUTIC TARGET < 7.0 ACTION SUGGESTED > 7.0 Performed By: #### A 1C #### [facility] [address] [address] [address] Rosemary Olvera Glucose [Mass/Vol] 108 mg/dL Normal [facility] Comment on above: Performed By: #### A 1C #### [facility] [address] [place] [address] Dr. Rosemary Olvera HbA1c (Bld) [Mass fraction] 5.4 % Normal 4.5-6.2 [facility] Comment on above: Performed By: #### A 1C #### [facility] [address] [address] [address] Rosemary Olvera LIPID PROFILEon 06-26-2022 CHOL-HDL RATIO NORM SEE BELOW Normal [facility] Comment on above: Result Comment: 3.3 - 4.4 LOW RISK 4.4 - 7.1 AVERAGE RISK 7.1 - 11.0 MODERATE RISK >11.0 HIGH RISK Performed By: #### T 7, LIPID, CMP, TSH #### [facility] [address] [address] [address] Rosemary Olvera Cholesterol [Mass/Vol] 198 mg/dL Normal <=200 [facility] Comment on above: Performed By: #### T 7, LIPID, CMP, TSH #### [facility] [address] [address] [address] Rosemary Olvera Cholesterol in HDL [Mass/Vol] 47 mg/dL Normal 40-60 [facility] Comment on above: Performed By: #### T 7, LIPID, CMP, TSH #### [facility] [address] [address] [address] Rosemary Olvera Cholesterol in LDL [Mass/Vol] 135.4 mg/dL Normal [facility] Comment on above: Performed By: #### T 7, LIPID, CMP, TSH #### [facility] [address] [address] [address] Rosemary Olvera Cholesterol.total/Cho lesterol in HDL [Mass ratio] 4.2 {ratio} Normal [facility] Comment on above: Performed By: #### T 7, LIPID, CMP, TSH #### [facility] [address] [address] [address] Rosemary Olvera HDL NORMAL > or = 60 mg/dl - LOW CARDIOVASCULAR RISK <40 mg/dl - HIGH CARDIOVASCULAR RISK Normal [facility] Comment on above: Performed By: #### T 7, LIPID, CMP, TSH #### [facility] [address] [place] [address] Dr. Rosemary Olvera LDL CALC NORMAL SEE BELOW Normal [facility] Comment on above: Result Comment: <100 mg/dl OPTIMAL 100 - 129 mg/dl NEAR OR ABOVE OPTIMAL 130 - 159 mg/dl BORDERLINE HIGH 160 - 189 mg/dl HIGH >190 mg/dl VERY HIGH Performed By: #### T 7, LIPID, CMP, TSH #### [facility] [address] [address] [address] Rosemary Olvera Triglyceride [Mass/Vol] 78 mg/dL Normal <=150 [facility] Comment on above: Performed By: #### T 7, LIPID, CMP, TSH #### [facility] [address] [address] [address] Rosemary Olvera VLDL CALC 15.6 mg/dL Normal [facility] Comment on above: Performed By: #### T 7, LIPID, CMP, TSH #### [facility] [address] [address] [address] Rosemary Olvera PROF 14(COMP METB)on 022 Albumin [Mass/Vol] 4.3 g/dL Normal 3.4-5.0 [facility] Comment on above: Performed By: #### T 7, LIPID, CMP, TSH #### [facility] [address] [address] [address] Rosemary Olvera Albumin/Globulin [Mass ratio] 1.2 {ratio} Normal [facility] Comment on above: Performed By: #### T 7, LIPID, CMP, TSH #### [facility] [address] [address] [address] Rosemary Olvera ALP [Catalytic activity/Vol] 62 U/L Normal 46-116 [facility] Comment on above: Performed By: #### T 7, LIPID, CMP, TSH #### [facility] [address] [address] [address] Rosemary Olvera ALT [Catalytic activity/Vol] 22 U/L Normal 16-63 [facility] Comment on above: Performed By: #### T 7, LIPID, CMP, TSH #### [facility] [address] [address] [address] Rosemary Olvera Anion gap [Moles/Vol] 10.3 mmol/L Normal [facility] Comment on above: Performed By: #### T 7, LIPID, CMP, TSH #### [facility] [address] [address] [address] Rosemary Olvera AST [Catalytic activity/Vol] 9 U/L Critically low 15-37 [facility] Comment on above: Performed By: #### T 7, LIPID, CMP, TSH #### [facility] [address] [address] [address] Rosemary Olvera Bilirubin [Mass/Vol] 0.6 mg/dL Normal 0.2-1.0 [facility] Comment on above: Performed By: #### T 7, LIPID, CMP, TSH #### [facility] [address] [address] [address] Rosemary Olvera Calcium [Mass/Vol] 9.3 mg/dL Normal 8.5-10.1 [facility] Comment on above: Performed By: #### T 7, LIPID, CMP, TSH #### [facility] [address] [address] [address] Rosemary Olvera Chloride [Moles/Vol] 103 mmol/L Normal 98-107 [facility] Comment on above: Performed By: #### T 7, LIPID, CMP, TSH #### [facility] [address] [address] [address] Rosemary Olvera CO2 [Moles/Vol] 29.5 mmol/L Normal 21.0-32.0 [facility] Comment on above: Performed By: #### T 7, LIPID, CMP, TSH #### [facility] [address] [place] [address] Dr. Rosemary Olvera Creatinine [Mass/Vol] 0.90 mg/dL Normal 0.70-1.30 [facility] Comment on above: Performed By: #### T 7, LIPID, CMP, TSH #### [facility] [address] [place] [address] Dr. Rosemary Olvera EGFR-AF MONGOLIAN >60 Normal >=60 [facility] Comment on above: Performed By: #### T 7, LIPID, CMP, TSH #### [facility] [address] [place] [address] Dr. Rosemary Olvera EGFR-NON AF MONGOLIAN >60 Normal >=60 [facility] Comment on above: Performed By: #### T 7, LIPID, CMP, TSH #### [facility] [address] [place] [address] Dr. Rosemary Olvera Globulin (S) [Mass/Vol] 3.6 g/dL Normal [facility] Comment on above: Performed By: #### T 7, LIPID, CMP, TSH #### [facility] [address] [place] [address] Dr. Rosemary Olvera Glucose [Mass/Vol] 100 mg/dL Normal 74-106 [facility] Comment on above: Performed By: #### T 7, LIPID, CMP, TSH #### [facility] [address] [place] [address] Dr. Rosemary Olvera Potassium [Moles/Vol] 3.8 mmol/L Normal 3.5-5.1 [facility] Comment on above: Performed By: #### T 7, LIPID, CMP, TSH #### [facility] [address] [place] [address] Dr. Rosemary Olvera Protein [Mass/Vol] 7.9 g/dL Normal 6.4-8.2 [facility] Comment on above: Performed By: #### T 7, LIPID, CMP, TSH #### [facility] [address] [place] [address] Dr. Rosemary Olvera Sodium [Moles/Vol] 139 mmol/L Normal 136-145 [facility] Comment on above: Performed By: #### T 7, LIPID, CMP, TSH #### [facility] [address] [place] [address] Dr. Rosemary Olvera Urea nitrogen [Mass/Vol] 13.0 mg/dL Normal 7.0-18.0 [facility] Comment on above: Performed By: #### T 7, LIPID, CMP, TSH #### [facility] [address] [place] [address] Dr. Rosemary Olvera Urea nitrogen/Creatinine [Mass ratio] 14.4 mg/mg Normal [facility] Comment on above: Performed By: #### T 7, LIPID, CMP, TSH #### [facility] [address] [place] [address] Dr. Rosemary Olvera TSHon 06-26-2022 TSH 1.405 uIU/mL Normal 0.358-3.740 [facility] Comment on above: Performed By: #### T 7, LIPID, CMP, TSH #### [facility] [address] [place] [address] Dr. Rosemary Olvera VITAMIN D 25 OHon 06-26-2022 VIT D 25-OH 8.5 ng/mL Normal [facility] Comment on above: Performed By: #### V ITAD #### [facility] [address] [place] [address] Dr. Rosemary Olvera VIT D RANGES SEE BELOW Normal [facility] Comment on above: Result Comment: <20 ng/mL Vit D deficient 20 - <30 ng/mL Vit D insufficient 30 - 100 ng/mL Vit D sufficient >100 ng/mL Potential Toxicity Performed By: #### V ITAD #### [facility] [address] [place] [address] Dr. Rosemary Olvera COVID-19 [facility] 02-02-20 20 COVID-19 Lab [facility] Not Detected Normal Not Detected [facility] Comment on above: Order Comment: RAMON COOK WITH RESULTS [phone] Healthcare Worker?: Y Result Comment: This test was developed and its performance characteristics determined by [employer]. This test has not been FDA cleared [...] detected) result in this assay. PERFORMED BY: [address] [address] PATHOLOGIST CARE SUPPORT REPRESENTATIVE JAMES KRAUSE M.D. Performed By: #### C ORONAVIRUS #### [facility] , Vital Signs Date Time Vital Sign Value Performing Clinician Facility 02-21-2022 19:15-0400 Body height 187.96 cm Anette Powers Other [facility] Other 02-21-2022 19:15-0400 Body mass index (BMI) [Ratio] 31.58 kg/m2 Anette Powers Other [facility] Other 02-21-2022 19:15-0400 Body temperature 97.4 [degF] Anette Powers Other [facility] Other 02-21-2022 19:15-0400 Body weight 111.59 kg Anette Priya Other [facility] Other 02-21-2022 19:15-0400 Diastolic blood pressure 76 mm[Hg] Anette Priya Other [facility] Other 02-21-2022 19:15-0400 Respiratory rate 18 /min Anette Priya Other [facility] Other 02-21-2022 19:15-0400 SaO2% (BldA) [Mass fraction] 99 % Anette Priya Other [facility] Other 02-21-2022 19:15-0400 Systolic blood pressure 126 mm[Hg] Anette Priya Other [facility] Other Encounters Encounter Date Encounter Type Care Provider Facility Start: 06-29-2022 Encounter for genera l adult medical examination without abnormal findings DR SHAUN GU [facility] Start: 06-26-2022 End: 06-27-[address] SHAUN GU Facility:[facility] Start: 06-26-2022 End: 06-27-2022 Encounter for general adult medical examination without abnormal findings DR SHAUN GU Facility:[facility] Start: 03-01-2022 End: 03-01-2022 ambulatory Teresa Li Other [facility] Other Start: 03-01-2022 Office outpatient vi sit 5 minutes Teresa Li [facility] Start: 02-21-2022 End: 02-21-2022 ambulatory Anette Powers Other [facility] Other Start: 02-21-2022 Office outpatient ne w 20 minutes Anette Powers [facility] Start: 02-02-2020 End: 02-02-2020 Departed Referred Brayden Taylor [facility] [place] Payers Date Payer Category Payer Unknown [id number] 1957 Unknown [id number] Self-pay Self Pay [id number] Social History Date Type Detail Facility Tobacco smoking status NHIS Unknown if ever smoked [facility] Start: 1997 Sex Assigned At Male [facility] Sex Assigned At Sex Assigned At Bir th [facility] Other Goals Date Patient Goal Desired Activity /State Evaluation note 03-01-2022 Note Date & Type Note Facility 03-01-2022 Evaluation note Encounter Date Diagnosis Assessment Notes Feb, Removal of staple (ICD-10 - Z48.02) [facility] Other Evaluation note 02-21-2022 Note Date & [...] repair: [facility] home care material was printed [facility] Other History general Narrative - Reported Note Date & Type Note Facility History general Narrative - Reported Type Medical History hyperacidity [facility] Other Assessments No Assessments Information Available Summary Purpose Family History No Family History Records FoundNo Family History Records Found Advance Directives No Advanced Directives Records FoundNo Advanced Directives Records Found Additional Source Comments (unrecognized sect ion and content) No Status Records FoundNo Status Records Found INFORMATION SOURCE (unrecogn ized section and content) DATE CREATED AUTHOR 03/04/2020 [facility] DATE CREATED AUTHOR AUTHOR'S ORGANIZ ATION [...] BE BASED ON THE PRIMARY CLINICAL RECORDS. [employer] provides no warranty or guarantee of the accuracy or completeness of information in this document.
[2024-07-23] MEDS: ADACEL DIPH,PERTUSS(ACELL),TET VAC/PF 0.5 ML ADULT SYRINGE IM (13:58)
--- NOTE | 2024-07-23 16:07 | ED.FALL1 ---
HPI HPI - Fall General Chief Complaint: Fall Stated Complaint: FALL HIT HEAD Time Seen by Provider: 07/23/24 12:40 Source: patient Mode of arrival: Wheelchair Limitations: no limitations History of Present Illness HPI Narrative: The patient is coming today after he tripped and hit his head over the edge of the bathroom cabin , the patient had no loss of consciousness he does not take anticoagulation On his last tetanus booster maybe 5 or more years ago Related Data Allergies Allergy/AdvReac Type Severity Reaction Status Date / Time Sulfa (Sulfonamide Allergy Severe Anaphylaxis Verified 07/23/24 13:56 Antibiotics) Opioid HPI Opioid Management Most Recent Pain and Opioid Data: No Data to Display Review of Systems ROS Status of ROS 10 or more systems reviewed and unremarkable except as noted in history and below PFSH PFSH Social History Little interest or pleasure in doing things: not at all Feeling down, depressed, or hopeless: not at all Exam Narrative Exam Narrative: Nurses notes and vital signs reviewed and patient is not hypoxic. General: Well-appearing and in no apparent distress. Skin: Warm, dry, no pallor noted. No rash. Head: Normocephalic, at the anterior scalp area the patient have a laceration that is almost located in a linear edges measuring 2.5 cm and is clean with no foreign body Neck: Supple, non-tender. Eye: Pupils are equal, round and EOMI. No scleral icterus. Ears, Nose, Mouth, and Throat: TM are clear, no nasal mucosal hypertrophy. Oral mucosa is moist, no posterior oropharynx erythema, uvula is mid-line Cardiovascular: Regular Rate and Rhythm without murmur, gallop or rub. Respiratory: No accessory muscle use or respiratory distress. Lungs are clear to auscultation, no wheezing, rales or rhonchi Chest Wall: no tenderness Back: No midline thoracic or lumbar vertebral tenderness. No CVA tenderness Musculoskeletal: normal ROM, no calf or popliteal tenderness, no lower extremity edema/swelling GI: Abdomen is soft, non-distended. Normal bowel sounds. No masses appreciated. No tenderness to palpation. No rebound, guarding, or rigidity noted. Neurological: A&O x4. No cranial nerve dysfunction observed. No truncal ataxia. Moves all extremities. Sensation intact. Psychiatric: Cooperative and interactive. Normal mood and affect. Constitutional Vital Signs, click to edit/add: Last Vital Signs Temp 98.2 F 07/23/24 12:21 Pulse 92 H 07/23/24 12:21 Resp 18 07/23/24 12:21 BP 149/83 H 07/23/24 12:21 Pulse Ox 96 07/23/24 12:21 O2 Del Method Room Air 07/23/24 12:21 Course Vital Signs Vital signs: Vital Signs Temperature 98.2 F 07/23/24 12:21 Pulse Rate 92 H 07/23/24 12:21 Respiratory Rate 18 07/23/24 12:21 Blood Pressure 149/83 H 07/23/24 12:21 Pulse Oximetry 96 07/23/24 12:21 Oxygen Delivery Method Room Air 07/23/24 12:21 Temperature 98.2 F 07/23/24 12:21 Pulse Rate 92 H 07/23/24 12:21 Respiratory Rate 18 07/23/24 12:21 Blood Pressure 149/83 H 07/23/24 12:21 Pulse Oximetry 96 07/23/24 12:21 Oxygen Delivery Method Room Air 07/23/24 12:21 MDM - Fall MDM Narrative Medical decision making narrative: The patient laceration was cleaned with normal saline and Betadine , After which it was infiltrated with the 3 cc of 1% lidocaine with no epinephrine The patient then had 6 stitches of 3-0 nylon applied and he tolerated that well I did explain to the patient right now with his head injury he need to monitor his symptoms for any headache or dizziness or any nausea vomiting he is to come back to the ER otherwise just supportive care and local care of the stitches advised with instruction about removing the stitches after 5 to 7 days The patient is to follow up with primary care physician in next 2-3 days or to return to the emergency department should any of the signs or symptoms worsen or new symptoms develop. The patient agrees with the following Diagnosis and Treatment plan and the patient will be discharged home. Discharge Plan Discharge Chief Complaint: Fall Clinical Impression: Laceration of scalp, Head trauma Patient Disposition: Home, Self-Care Time of Disposition Decision: 13:45 Condition: Good Mode of Transportation: Private Vehicle Print Language: Maldivian Instructions: Laceration (ED), Head Injury (DC) Referrals: Dennys Houston MD [Primary Care Provider] - 1 week Discharge Date/Time: 07/23/24 14:10
== END 2024-07-23 14:10 | disposition home or self-care (01) ==
PROVIDERS: Emergency Provider Emergency Medicine; PCP Family Medicine
DX: S01.01XA Laceration without foreign body of scalp, initial encounter (principal); W01.198A Fall on same level from slipping, tripping and stumbling with subsequent striking against other object, initial encounter; Z23 Encounter for immunization
CPT/HCPCS: 12001; 90471; 90715; 99284

== ENCOUNTER 2025-07-22 11:39 | Outpatient (OUT) | payer OTHER, SELFPAY ==
--- OUTSIDE RECORDS SUMMARY | 2025-07-22 11:45 | XMS_ITS | CCD ---
Author Organization [facility] Inform ion Partnership [facility] Care Team Providers Care Ict Teacher Name Role Phone Brayden Taylor Attending Provider Anette Powers Unavailable Teresa Li Unavailable DR SHAUN GU Admitting Unavailable DR SHAUN GU Attending Unavailable DR SHAUN GU Primary Care Unavailable DR SHAUN GU Consulting Unavailable Unavailable Unavailable Unavailable Medications Current Medications MedicationDrug Class(es)DatesSig (Normalized)Sig (Original)pantoprazole 40 mg delayed release oral tablet (2 sources)Proton Pump Inhibitortake 1 tablet by mouth once dailyPantoprazole Sodium 40 MG take 1 tablet by mouth once daily Oral for 30 Days Active Problems Problem ClassificationProblemDateDocumented DateEpisodic/ChronicOpen wounds of head; neck; and trunk (1 source)Laceration without foreign body of scalp, initial encounterOnset: 02-21-2022 Resolved: 38-54-0205YwuuvvmbVwlvk aftercare (1 source)Encounter for removal of suturesOnset: 03-01-2022 Resolved: 73-80-0496EqefjtqsPpeau injuries and conditions due to external causes (1 source)Unspecified injury of head, initial encounterOnset: 02-21-2022 Resolved: 15-05-6801Zuqinace Results Test NameValueInterpretationReference RangeFacilityINSULINon 90-70-3451Noymjwh 20.3 uIU/mLNormal2.6-24.9The [facility] HospitalComment on above:Performed By: #### INSULIN #### [facility] [address] [address] [address] Rose[facility]aL[facility] AUTO DIFFon 52-73-0441AOKF #0.0 103/ulNormal0.0-0.1The [facility] HospitalComment on above:Performed By: #### CBC #### [facility] [address] [place] [address] Dr. Rosemary OlveraBasophils/100 WBC (Bld)0.4 %Normal0.2-2.0[facility] Comment on above:Performed By: #### CBC #### [facility] [address] [place] [address] Dr. Rosemary Guillen #0.2 103/ulNormal0.0-0.7The [facility] HospitalComment on above: Performed By: #### CBC #### [facility] [address] [place] [address] Dr. Rosemary Daoosinophils/100 WBC (Bld)1.8 %Normal0.9-7.0[facility] Comment on above:Performed By: #### CBC #### [facility] [address] [place] [address] Dr. Rosemary Daorythrocyte distribution width (RBC) [Ratio]13.7 %Xeabok15.0-15.0 [facility] HospitalComment on above:Performed By: #### CBC #### [facility] [address] [place] [address] Dr. Rosemary OlveraHematocrit (Bld) [Volume fraction]48.0 %Zlklrk75.0-54.0The [facility] HospitalComment on above:Performed By: #### CBC #### [facility] [address] [place] [address] Dr. Rosemary OlveraHemoglobin (Bld) [Mass/Vol]15.9 g/nSBtwwjc45.0-18.0The [facility] HospitalComment on above:Performed By: #### CBC #### [facility] [address] [place] [address] Dr. Rosemary Olivares #0.04 10e3/ulCritically high0.00-0.03[facility] Comment on above:Performed By: #### CBC #### [facility] [address] [place] [address] Dr. Rosemary Olivares %0.4 %Normal0.0-0.5The [facility] HospitalComment on above: Performed By: #### CBC #### [facility] [address] [place] [address] Dr. Rosemary Roth #2.2 103/ulNormal1.2-3.8The [facility] HospitalComment on above:Performed By: #### CBC #### [facility] [address] [place] [address] Dr. Rosemary Landahocytes/100 WBC (Bld)24.4 %Ucyksw65.5-60.0The [facility] HospitalComment on above:Performed By: #### CBC #### [facility] [address] [place] [address] Dr. Rosemary Perez DIFF REQNONormalThe [facility] HospitalComment on above: Performed By: #### CBC #### [facility] [address] [place] [address] Dr. Rosemary Ca (RBC) [Entitic mass]26.5 riEpnpoc24.9-34.0The [facility] HospitalComment on above:Performed By: #### CBC #### [facility] [address] [place] [address] Dr. Rosemary Ca (RBC) [Mass/Vol]33.1 g/rCPkdqll82.9-35.2The [facility] HospitalCom[facility]aumont hospital on above:Performed By: #### CBC #### [facility] [address] [place] [address] Dr. Rosemary Ca (RBC) [Entitic vol]79.9 fLCritically low80.0-94.0The [facility] HospitalComment on above:Performed By: #### CBC #### [facility] [address] [place] [address] Dr. oRsemary Sevilla #0.5 103/ulNormal0.3-0.8The [facility] HospitalComment on above:Performed By: #### CBC #### [facility] [address] [address] [address] Rosemary Harveyocytes/100 WBC (Bld)5.5 %Normal1.7-12.0The [facility] Comment on above:Performed By: #### CBC #### [facility] [address] [place] [address] Dr. Rosemary PadillaUT #6.1 103/ulNormal1.4-6.5The [facility] HospitalComment on above:Performed By: #### CBC #### [facility] [address] [place] [address] Dr. Rosemary Padillautrophils/100 WBC (Bld)67.5 %Jszlju75.0-75.0The [facility] HospitalComment on above:Performed By: #### CBC #### [facility] [address] [place] [address] Dr. Rosemary Hidalgolet mean volume (Bld) [Entitic vol]10.2 fLNormal9.5-13.5The [facility] HospitalComment on above:Performed By: #### CBC #### [facility] [address] [place] [address] Dr. Rosemary OlveraPLT283 103/saRyeyxy992-381Ebj [facility] HospitalComment on above: Performed By: #### CBC #### [facility] [address] [place] [address] Dr. Rosemary OlveraRBC6.01 106/ulNormal4.70-6.10The [facility] HospitalComment on above:Performed By: #### CBC #### [facility] [address] [place] [address] Dr. Rosemary OlveraWBC9.1 103/ulNormal4.0-11.0The [facility] HospitalComment on above: Performed By: #### CBC #### [facility] [address] [place] [address] Dr. Rosemary Gustafson THYROXINE INDEX T7on 33-98-9555ZNN0.87Vhiypn4.30-4.50The [facility] HospitalComment on above:Performed By: #### T7, LIPID, CMP, TSH #### [facility] [address] [address] [address] Rosemary OlveraT3U35.0 %Unhgoe41.0-40.0The [facility] HospitalComment on above: Performed By: #### T7, LIPID, CMP, TSH #### [facility] [address] [address] [address] Rosemary OlveraT4 [Mass/Vol]10.60 ug/dLNormal4.50-12.10The [facility] Comment on above:Performed By: #### T7, LIPID, CMP, TSH #### [facility] [address] [address] [address] Rosemary OlveraGLYCOHEMOGLOBIN A1Con 97-90-8979FAS RECOMMENDATIONSEE BELOWTrihealth Good Samaritan HospitalComment on above:Result Comment: ADA RECOMMENDED LIMIT 4.0 - 6.0 ADA THERAPEUTIC TARGET < 7.0 ACTION SUGGESTED > 7.0Performed By: #### A1C #### [facility] [address] [place] [address] Dr. Rosemary OlveraGlucose [Mass/Vol]108 mg/dLNormalThBucyrus Community HospitalComment on above:Performed By: #### A1C #### [facility] [address] [place] [address] Dr. Rosemary OlveraHbA1c (Bld) [Mass fraction]5.4 %Normal4.5-6.2The [facility] HospitalComment on above:Performed By: #### A1C #### [facility] [address] [place] [address] Dr. Rosemary OlveraLIPID PROFILEon 53-55-3233PTFZ-HDL RATIO NORMSEE BELOWCorey HospitalComment on above:Result Comment: 3.3 - 4.4 LOW RISK 4.4 - 7.1 AVERAGE RISK 7.1 - 11.0 MODERATE RISK >11.0 HIGH RISKPerformed By: #### T7, LIPID, CMP, TSH #### [facility] [address] [place] [address] Dr. Rosemary OlveraCholesterol [Mass/Vol]198 mg/dLNormal<=200The [facility] Comment on above:Performed By: #### T7, LIPID, CMP, TSH #### [facility] [address] [address] [address] Rosemary Harrisesterol in HDL [Mass/Vol]47 mg/zTUoaotd16-48Ozj [facility] HospitalComment on above:Performed By: #### T7, LIPID, CMP, TSH #### [facility] [address] [address] [address] Rosemary Harrisesterol in LDL [Mass/Vol]135.4 mg/dLNoMain Campus Medical CenterComment on above:Performed By: #### T7, LIPID, CMP, TSH #### [facility] [address] [place] [address] Dr. Rosemary Mac.total/Cholesterol in HDL [Mass ratio]4.2 {ratio} NormalThe [facility] HospitalComment on above:Performed By: #### T7, LIPID, CMP, TSH #### [facility] [address] [address] [address] Rosemary Lopes NORMAL> or = 60 mg/dl - LOW CARDIOVASCULAR RISK <40 mg/dl - HIGH CARDIOVASCULAR RISKNoMain Campus Medical CenterComment on above:Performed By: #### T7, LIPID, CMP, TSH #### [facility] [address] [address] [address] Rosemary Armstrong CALC NORMALSEE BELOWCorey HospitalComment on above:Result Comment: <100 mg/dl OPTIMAL 100 - 129 mg/dl NEAR OR ABOVE OPTIMAL 130 - 159 mg/dl BORDERLINE HIGH 160 - 189 mg/dl HIGH >190 mg/dl VERY HIGH Performed By: #### T7, LIPID, CMP, TSH #### [facility] [address] [address] [address] Rosemary OlveraTriglyceride [Mass/Vol]78 mg/dLNormal<=150[facility] Comment on above:Performed By: #### T7, LIPID, CMP, TSH #### [facility] [address] [address] [address] Rosemary HansenLDL CALC15.6 mg/dLNoMain Campus Medical CenterComment on above: Performed By: #### T7, LIPID, CMP, TSH #### [facility] [address] [address] [address] Rosemary Robertson 14(COMP METB)on 52-37-2075Tdqnuxt [Mass/Vol]4.3 g/dLNormal 3.4-5.0The [facility] HospitalComment on above:Performed By: #### T7, LIPID, CMP, TSH #### [facility] [address] [address] [address] Rosemary OlveraAlbumin/Globulin [Mass ratio]1.2 {ratio}NormalThe [facility] HospitalComment on above:Performed By: #### T7, LIPID, CMP, TSH #### [facility] [address] [place] [address] Dr. Rosemary Blackwell [Catalytic activity/Vol]62 U/TEyrrzw07-588Bjj [facility] HospitalComment on above:Performed By: #### T7, LIPID, CMP, TSH #### [facility] [address] [place] [address] Dr. Rosemary Bethea [Catalytic activity/Vol]22 U/NQykcyw68-25Bex [facility] HospitalComment on above:Performed By: #### T7, LIPID, CMP, TSH #### [facility] [address] [place] [address] Dr. Rosemary Casey gap [Moles/Vol]10.3 mmol/LNormalThe [facility] Comment on above:Performed By: #### T7, LIPID, CMP, TSH #### [facility] [address] [place] [address] Dr. Rosemary OlveraAST [Catalytic activity/Vol]9 U/LCritically yeu61-70Udv [facility] HospitalComment on above:Performed By: #### T7, LIPID, CMP, TSH #### [facility] [address] [place] [address] Dr. Rosemary OlveraBilirubin [Mass/Vol]0.6 mg/dLNormal0.2-1.0The [facility] Comment on above:Performed By: #### T7, LIPID, CMP, TSH #### [facility] [address] [address] [address] Rosemary OlveraCalcium [Mass/Vol]9.3 mg/dLNormal8.5-10.1The [facility] Comment on above:Performed By: #### T7, LIPID, CMP, TSH #### [facility] [address] [place] [address] Dr. Rosemary OlveraChloride [Moles/Vol]103 mmol/BUjdwtn18-664Rbp [facility] Comment on above:Performed By: #### T7, LIPID, CMP, TSH #### [facility] [address] [place] [address] Dr. Rosemary OlveraCO2 [Moles/Vol]29.5 mmol/CXixext57.0-32.0The [facility] Comment on above:Performed By: #### T7, LIPID, CMP, TSH #### [facility] [address] [place] [address] Dr. Rosemary OlveraCreatinine [Mass/Vol]0.90 mg/dLNormal0.70-1.30The [facility] HospitalComment on above:Performed By: #### T7, LIPID, CMP, TSH #### [facility] [address] [place] [address] Dr. Rosemary DaoGFR-AF CHINESE>60Normal>=60The [facility] HospitalComment on above:Performed By: #### T7, LIPID, CMP, TSH #### [facility] [address] [place] [address] Dr. Rosemary DaoGFR-NON AF CHINESE>60Normal>=60The [facility] HospitalComment on above:Performed By: #### T7, LIPID, CMP, TSH #### [facility] [address] [place] [address] Dr. Rosemary OlveraGlobulin (S) [Mass/Vol]3.6 g/dLNormalThe [facility] HospitalComment on above:Performed By: #### T7, LIPID, CMP, TSH #### [facility] [address] [place] [address] Dr. Rosemary OlveraGlucose [Mass/Vol]100 mg/nDZmfjha84-443Ojx [facility] Comment on above:Performed By: #### T7, LIPID, CMP, TSH #### [facility] [address] [address] [address] Rosemary OlveraPotassium [Moles/Vol]3.8 mmol/LNormal3.5-5.1The [facility] Comment on above:Performed By: #### T7, LIPID, CMP, TSH #### [facility] [address] [address] [address] Rosemary OlveraProtein [Mass/Vol]7.9 g/dLNormal6.4-8.2The [facility] Comment on above:Performed By: #### T7, LIPID, CMP, TSH #### [facility] [address] [place] [address] Dr. Rosemary OlveraSodium [Moles/Vol]139 mmol/XRzwpax228-176Zux [facility] Comment on above:Performed By: #### T7, LIPID, CMP, TSH #### [facility] [address] [place] [address] Dr. Rosemary OlveraUrea nitrogen [Mass/Vol]13.0 mg/dLNormal7.0-18.0The [facility] HospitalComment on above:Performed By: #### T7, LIPID, CMP, TSH #### [facility] [address] [place] [address] Dr. Rosemary OlveraUrea nitrogen/Creatinine [Mass ratio]14.4 mg/mgNormalThe [facility] HospitalComment on above:Performed By: #### T7, LIPID, CMP, TSH #### [facility] [address] [place] [address] Dr. Rosemary AyersHoalix 04-16-4189WUB6.405 uIU/mLNormal0.358-3.740The [facility] HospitalComment on above:Performed By: #### T7, LIPID, CMP, TSH #### [facility] [address] [place] [address] Dr. Rosemary OlveraVITAMIN D 25 OHon 01-83-1771NDO D 25-OH8.5 ng/mLNormalThe [facility] HospitalComment on above:Performed By: #### VITAD #### [facility] [address] [address] [address] Rosemary ALBERTSEMelissa BELOWNoMain Campus Medical CenterCombeaumont hospital on above: Result Comment: <20 ng/mL Vit D deficient 20 - <30 ng/mL Vit D insufficient 30 - 100 ng/mL Vit D sufficient >100 ng/mL Potential ToxicityPerformed By: #### VITAD #### [facility] [address] [place], [place] [address] Dr. Rosemary OlveraCOVID-19 Lab Corpon [id number]-19 Lab CorpNot DetectedNormal Not DetectedClinton Memorial HospitalComment on above:Order Comment: CONTACT [facility] WITH RESULTS [phone] Healthcare Worker?: Mark Comment: This test was developed and its performance characteristics determined by [employer]. This test has not been FDA cleared [...] detected) result in this assay. PERFORMED BY: [address] [place] [address] [address] PATHOLOGIST FERMENTER WINE JAMES KRAUSE M.D.Performed By: #### CORONAVIRUS #### [facility] , Vital Signs Date TimeVital SignValuePerforming UlktasnuvIsupsvxi69-32-5840 19:15-0400Body otiqzx023.96 cmPgermán Powers Other [employer] Other 07-13-2022 19:15-0400Body mass index (BMI) [Ratio] 31.58 kg/u4CcpxnbAnette Powers Other [employer] Other 07-13-2022 19:15-0400Body xukggnuiysr85.4 [degF]Anette Powers Other [employer] Other 07-13-2022 19:15-0400Body eukbav350.59 kgAnette Powers Other [employer] Other 07-13-2022 19:15-0400Diastolic blood pgtjnhib60 mm[Hg] Anette Powers Other [employer] Other 07-13-2022 19:15-0400Respiratory rate18 /minAnette Powers Other [employer] Other 07-13-2022 19:15-2880RyL9% (BldA) [Mass fraction]99 % Anette Powers Other [employer] Other 07-13-2022 19:15-0400Systolic blood dfcndcuy481 mm[Hg] Anette Powers Other [employer] Other Encounters Encounter DateEncounter TypeCare ProviderFacilityStart: 03-75-1588Miapwlfyl for general adult medical examination without abnormal findingsDR SHAUN Nunes [facility]Start: 06-26-2022 End: 34-35-6784nieapeppuqHA SHAUN GUcility:K2Vhuqk: 06-26-2022 End: 49-62-8597Pqtwrztpz for general adult medical examination without abnormal findingsDR SHAUN uJanacility:K8Bfabh: 03-01-2022 End: 20-75-5955ygxwdkmvckAyimtsfnp Breault Other [facility] [employer] Other Start: 96-19-9072Msrfsi outpatient visit 5 minutes Teresa LiFPAmy Urgent Care ClydeStart: 02-21-2022 End: 76-78-4796oolpbtovvoIscyne Dymond Other [facility] [employer] Other Start: 86-40-1649Zssiju outpatient new 20 minutes Anette PriyaFPG Urgent Care ClydeStart: 02-02-2020 End: 19-79-0551Xagkbdrd ReferredDaniTriHealth [facility] [place] Payers DatePayer CategoryPayerPolicy [id number] Self-paySelf [id number] Social History DateTypeDetailFacilityTobacco smoking status NHISUnknown if ever smokedKnox Community Hospital CtrStart: 33-86-0809Jsu Assigned At [facility] CtrSex Assigned At [facility]ex Assigned At [facility] [employer] Other Goals DatePatient GoalDesired Activity/State Evaluation note 03-01-2022 Note Date & CbpyKqbeUqznxoxd62-27-7002 Evaluation note* Encounter Date Diagnosis Assessment Notes Treatment Notes Treatment Clinical Notes Feb, Removal of staple (ICD-10 - Z48. 02) [facility] [employer] Other Evaluation note 02-21-2022 Note Date & AzaoTskyKosvgjsy73-63-0063 Evaluation note* Encounter Date Diagnosis Assessment Notes Treatment Notes Treatment Clinical Notes Feb, Laceration of scalp, initial enc ounter (ICD-10 - S01.01XA) Drink plenty fluids, get plenty of rest. Keep the wound clean and dry. Apply antibiotic ointment tothe wound daily. You may apply ice to the the wound area for comfort. Take Tylenol or Motrin as needed for pain. It is okay for you to sleep. Go to your doctor's office or return to this clinic in 7 days for staple removal. You may shower, be gentle over the staple area. No swimming until the woundis completely healed. Feb,Injury of head, initial encounter (ICD-10 - S09.90XA)Closed head injury home care material was printed Feb,therLaceration repair: lashae home care material was printed [employer] Other History general Narrative - Reported Note Date & TypeNoteFacilityHistory general Narrative - Reported* Type Description Date Medical History hyperacidity [employer] Other Assessments No Assessments Information Available Summary Purpose Family History No Family History Records FoundNo Family History Records Found Advance Directives No Advanced Directives Records FoundNo Advanced Directives Records Found Additional Source Comments (unrecognized sect ion and content) No Status Records FoundNo Status Records Found INFORMATION SOURCE (unrecogn ized section and content) DATE CREATED AUTHOR 03/04/2020 [facility] DATE CREATED AUTHOR AUTHOR'S ORGANIZ ATION 06/30/2022 [facility] REASON FOR VISIT (unrecogniz ed section and [...] BE BASED ON THE PRIMARY CLINICAL RECORDS. [facility]. provides no warranty or guarantee of the accuracy or completeness of information in this document.
[2025-07-22 12:28] LABS: Hematocrit 52.0 % (42.0-54.0); Hemoglobin 17.0 g/dL (14.0-18.0); Immature Granulocytes Abs Auto 0.07 10^3/uL (0.00-0.03); Immature Granulocytes Pct Auto 0.4 % (0.0-0.5); Lymphocytes Absolute Auto 1.1 10^3/uL (1.2-3.8); Mean Corpuscular HGB Conc 32.7 g/dL (29.9-35.2); Mean Corpuscular Hemoglobin 26.6 pg (25.9-34.0); Mean Corpuscular Volume 81.3 fL (80.0-94.0); Platelet Count 339 10^3/uL (150-450); Red Blood Count 6.40 10^6/uL (4.70-6.10); White Blood Count 17.2 10^3/uL (4.0-11.0)
[2025-07-22 15:52] LABS: Alanine Aminotransferase 34 U/L (16-63); Albumin Globulin Ratio 1.2; Albumin Level 4.5 g/dL (3.4-5.0); Alkaline Phosphatase 73 U/L (46-116); Anion Gap 11.6; Aspartate Amino Transferase 18 U/L (15-37); Blood Urea Nitrogen 10.0 mg/dL (7.0-18.0); Calcium 9.6 mg/dL (8.5-10.1); Carbon Dioxide 30.1 mmol/L (21.0-32.0); Chloride 104 mmol/L (98-107); Cholesterol 208 mg/dL (<=200); Estimated GFR (African America >60 (>=60 mL/min/1.73m^2); Estimated GFR (Non-African Ame >60 (>=60 mL/min/1.73m^2); Free T3 3.56 pg/mL (2.18-3.98); Globulin 3.6 g/dL; Glucose 83 mg/dL (74-106); HDL Cholesterol 53 mg/dL (40-60); Potassium 3.7 mmol/L (3.5-5.1); Sodium 142 mmol/L (136-145); Thyroid Stimulating Hormone 1.004 uIU/mL (0.358-3.740); Total Protein 8.1 g/dL (6.4-8.2); Triglycerides 69 mg/dL (<=150); VLDL CHOLESTEROL 13.8 mg/dL
== END 2025-07-22 11:40 | disposition home or self-care (01) ==
PROVIDERS: PCP Family Medicine; Visit Provider Family Medicine
DX: Z00.00 Encounter for general adult medical examination without abnormal findings (principal)
CPT/HCPCS: 36415; 80053; 80061; 83036; 83525; 84436; 84443; 84481; 85025